=== PATIENT | female | born 1975 | race Hispanic/Latino ===

== ENCOUNTER 2017-03-25 22:06 | Emergency (ER) | payer OTHER ==
[~2017-03-25] VITALS: Ht 157.5 cm; Wt 56.8 kg
[2017-03-26 00:16] VITALS: BP 122/71
== END 2017-03-26 00:23 | disposition home or self-care (01) ==
LOC: EME 22:06
DX: S09.90XA Unspecified injury of head, initial encounter (principal); R07.81 Pleurodynia; V43.52XA Car driver injured in collision with other type car in traffic accident, initial encounter; Y92.410 Unspecified street and highway as the place of occurrence of the external cause; Z87.891 Personal history of nicotine dependence
CPT/HCPCS: 70450; 99281; 99284